=== PATIENT | female | born 1945 | race Caucasian/White ===

== ENCOUNTER 2017-03-19 07:26 | Day surgery (SDC) | payer MEDICARE ==
[~2017-03-19] VITALS: Ht 160 cm; Wt 58.4 kg
[~2017-03-19 07:26] MED LIST: AMLO5 PO; ASPI81CH PO; ATEN50 PO; CALCNI; CEPH500 PO; CYCL10 PO; GABA100 PO; HYDACE5 PO; LORA1 PO; Mobic15 MG PO; OMEP20ER PO; PROACE100 PO; PROM25 PO; Pravachol40 MG; Prednisone20 MG PO; RXPROACE PO; VALS80 PO; VENL25 PO
[2017-12-16] MEDS ORDERED: Venlafaxine HCl75 MG PO (07:49)
[2017-12-16] MEDS ORDERED: AMLO10 PO (07:49)
[2017-12-16] MEDS ORDERED: Pravastatin Sod40 MG PO (07:49)
[2017-12-16] MEDS ORDERED: Norco 5-325 Ta1 EACH PO (08:18)
[2017-12-16] MEDS ORDERED: Zofran Odt4 MG SL (08:18)
== END 2017-03-19 09:36 | disposition home or self-care (01) ==
LOC: ORSCSDS 07:26
PROVIDERS: Internal Medicine Gastroenterology
PROC: 0DBN8ZX Excision of Sigmoid Colon, Via Natural or Artificial Opening Endoscopic, Diagnostic (ICD-10-PCS; principal; 2017-03-19 08:45)
DX: Z12.11 Encounter for screening for malignant neoplasm of colon (principal); D12.5 Benign neoplasm of sigmoid colon; K64.8 Other hemorrhoids; K64.4 Residual hemorrhoidal skin tags; E78.00 Pure hypercholesterolemia, unspecified; Z85.038 Personal history of other malignant neoplasm of large intestine; Z86.010 Personal history of colon polyps; F17.210 Nicotine dependence, cigarettes, uncomplicated; K21.9 Gastro-esophageal reflux disease without esophagitis; Z79.82 Long term (current) use of aspirin; Z79.899 Other long term (current) drug therapy
CPT/HCPCS: 88305; J7120

== ENCOUNTER → 2020-03-31 | Outpatient (CLI) | payer MEDICARE ==
[~2020-03-31] MED LIST changes: +AMLO10 PO; +Norco 5-325 Ta1 EACH PO; +Pravastatin Sod40 MG PO; +Venlafaxine HCl75 MG PO; +Zofran Odt4 MG SL
== END | disposition home or self-care (01) ==
LOC: LAB SHORT 07:00 → LAB 07:00 → LAB SHORT 04-01 07:00
DX: K21.9 Gastro-esophageal reflux disease without esophagitis (principal)
CPT/HCPCS: 87338

== ENCOUNTER 2020-04-08 06:43 | Day surgery (SDC) | payer MEDICARE ==
[~2020-04-08] VITALS: Ht 154.9 cm; Wt 60.5 kg
--- NOTE | 2020-04-08 07:18 | NUR ---
04/08/20 0718 COLBY CELESTIN ONE ATTEMPT BY KALEE IN RH MISSED ONE ATTEMPT IN RH BY KALEE VALVE ONE SUCCESFUL BY RN IN RFA PT TOW
== END 2020-04-08 08:40 | disposition home or self-care (01) ==
LOC: ORSCSDS 06:43
PROVIDERS: Internal Medicine Gastroenterology
PROC: 0DB58ZX Excision of Esophagus, Via Natural or Artificial Opening Endoscopic, Diagnostic (ICD-10-PCS; 2020-04-08)
PROC: 0DB68ZX Excision of Stomach, Via Natural or Artificial Opening Endoscopic, Diagnostic (ICD-10-PCS; 2020-04-08)
PROC: 0D758ZZ Dilation of Esophagus, Via Natural or Artificial Opening Endoscopic (ICD-10-PCS; principal; 2020-04-08 07:45)
DX: R13.10 Dysphagia, unspecified (principal); K44.9 Diaphragmatic hernia without obstruction or gangrene; K21.9 Gastro-esophageal reflux disease without esophagitis; K64.4 Residual hemorrhoidal skin tags; E78.00 Pure hypercholesterolemia, unspecified; Z79.899 Other long term (current) drug therapy; F17.210 Nicotine dependence, cigarettes, uncomplicated; Z79.82 Long term (current) use of aspirin
CPT/HCPCS: 88305; 88342; J0330; J0461; J2405; J2704; J7120

== ENCOUNTER 2021-01-18 11:14 | Day surgery (SDC) | payer MEDICARE ==
[~2021-01-18] VITALS: Ht 154.9 cm; Wt 59.5 kg
[2021-01-18] MEDS ORDERED: VITAMIN D33000 UNIT PO (11:30)
[2021-01-18] MEDS ORDERED: Hair, Skin & N1 EACH PO (11:31)
== END 2021-01-18 13:15 | disposition home or self-care (01) ==
LOC: ORSCSDS 11:14
PROVIDERS: Internal Medicine Gastroenterology
PROC: 0DBP8ZX Excision of Rectum, Via Natural or Artificial Opening Endoscopic, Diagnostic (ICD-10-PCS; principal; 2021-01-18 12:30)
DX: R19.7 Diarrhea, unspecified (principal); Z85.038 Personal history of other malignant neoplasm of large intestine; Z86.010 Personal history of colon polyps; R63.5 Abnormal weight gain; K64.8 Other hemorrhoids; K64.4 Residual hemorrhoidal skin tags
CPT/HCPCS: 88305; J2704; J7120

== ENCOUNTER 2022-04-09 07:25 | Emergency (ER) | payer MEDICARE ==
[~2022-04-09] VITALS: Ht 154.9 cm; Wt 59.0 kg
[~2022-04-09 07:25] MED LIST changes: +Hair, Skin & N1 EACH PO; +VITAMIN D33000 UNIT PO
[2022-04-09] MEDS ORDERED: Zofran4 MG PO (09:02)
[2022-04-09] MEDS ORDERED: Colace250 MG PO (09:02)
[2022-04-09] MEDS ORDERED: LIDO700A20 TOP (09:02)
== END 2022-04-09 09:17 | disposition home or self-care (01) ==
LOC: ER 07:25
DX: S22.39XA Fracture of one rib, unspecified side, initial encounter for closed fracture (principal); W11.XXXA Fall on and from ladder, initial encounter; Z88.2 Allergy status to sulfonamides; Z88.8 Allergy status to other drugs, medicaments and biological substances; Z88.5 Allergy status to narcotic agent; Z79.899 Other long term (current) drug therapy; Z79.82 Long term (current) use of aspirin; I10 Essential (primary) hypertension; E78.5 Hyperlipidemia, unspecified; F17.290 Nicotine dependence, other tobacco product, uncomplicated
CPT/HCPCS: 71046; 93005; 93010; 96372; 99284-25; J1885

== ENCOUNTER 2022-05-14 10:39 | Day surgery (SDC) | payer MEDICARE ==
[~2022-05-14] VITALS: Ht 157.5 cm; Wt 58.1 kg
[~2022-05-14 10:39] MED LIST changes: +Colace250 MG PO; +LIDO700A20 TOP; +Zofran4 MG PO
== END 2022-05-14 13:10 | disposition home or self-care (01) ==
LOC: ORSCSDS 10:39
PROVIDERS: Orthopaedic Surgery
PROC: 01N50ZZ Release Median Nerve, Open Approach (ICD-10-PCS; principal; 2022-05-14 12:15)
DX: G56.02 Carpal tunnel syndrome, left upper limb (principal); I10 Essential (primary) hypertension; F17.210 Nicotine dependence, cigarettes, uncomplicated; Z79.82 Long term (current) use of aspirin; Z79.899 Other long term (current) drug therapy
CPT/HCPCS: J0690; J2001

== ENCOUNTER 2023-12-11 09:13 | Day surgery (SDC) | payer MEDICARE ==
[~2023-12-11] VITALS: Ht 160 cm; Wt 58.8 kg
[~2023-12-11 09:13] MED LIST changes: +Dexamethasone Sod Phos 10 MG/ML 1ML VIAL ONE; +FentaNYL Citrate 50 MCG/ML 2 ML Injection ONE; +Ondansetron HCl 2 MG / ML 2ML Vial ONE; +SuccINYLCHOLINE Chloride 100 MG/5 ML 5MLSYR ONE; +propofoL 20 ML IV ONE
[2023-12-11] MEDS ORDERED: Lactated Ringer's 1,000 ML IV ONE ×2 (09:30→10:56)
[2023-12-11] MEDS ORDERED: Lidocaine 2%-Epineph 1:200000 20 ML SDV ONE (09:41)
[2023-12-11] MEDS ORDERED: ePHEDrine Sulfate 50 MG/ML 1ML Injection ONE (10:14)
[2023-12-11] MEDS ORDERED: EPINEPhrine HCl 1 MG/ML 1ML Amp ONE (10:17)
[2023-12-11] MEDS ORDERED: FentaNYL Citrate 50 MCG/ML 2 ML Injection ONE ×2 (10:43→12:15)
--- NOTE | 2023-12-11 12:32 | NUR ---
12/11/23 1232 Vivienne Martínez TRIAL OFF 4L O2, PT TO 91% ON RA, ONCE GAVE FENTANYL PLACE BACK ON 4L O2 BY FACE TENT.
[2023-12-11] MEDS ORDERED: HYDROcodone 5-APAP 325 TAB ONE (13:27)
[2023-12-11 13:51] VITALS: BP 134/58
== END 2023-12-11 14:20 | disposition home or self-care (01) ==
LOC: ORSCSDS 09:13
PROVIDERS: Otolaryngology
PROC: 0GBH0ZZ Excision of Right Thyroid Gland Lobe, Open Approach (ICD-10-PCS; principal; 2023-12-11 11:00)
PROC: 0GBG0ZZ Excision of Left Thyroid Gland Lobe, Open Approach (ICD-10-PCS; principal; 2023-12-11 11:00)
DX: E04.2 Nontoxic multinodular goiter (principal); I10 Essential (primary) hypertension; F17.210 Nicotine dependence, cigarettes, uncomplicated
CPT/HCPCS: 88307; A9270; J0171; J0330; J1100; J2405; J2704; J3010; J7120

== ENCOUNTER 2024-09-09 06:39 | Day surgery (SDC) | payer MEDICARE ==
[~2024-09-09] VITALS: Ht 152.4 cm; Wt 60.8 kg
[~2024-09-09 06:39] MED LIST changes: -Dexamethasone Sod Phos 10 MG/ML 1ML VIAL ONE; -FentaNYL Citrate 50 MCG/ML 2 ML Injection ONE; +LEVSOD112 PO; -Ondansetron HCl 2 MG / ML 2ML Vial ONE; -SuccINYLCHOLINE Chloride 100 MG/5 ML 5MLSYR ONE; -propofoL 20 ML IV ONE
[2024-09-09 07:06] VITALS: BP 170/65
--- NOTE | 2024-09-09 07:38 | NUR ---
09/09/24 0738 Halley Pino 0731- CONFIRMED AND REVIEWED H&P, MEDCICATIONS, ALLERGIES, MEDICAL HISTORY, RESPIRATORY HISTORY, VITAL SIGNS, 3-LEAD EKG, CONSENTS, AND PHYSICIAN ORDERS. PATIENT CONFIRMS NPO STATUS AND AGREES WITH SCHEDULED PROCEDURE. MONITOR INTACT WITH CONTINUOUS PULSE OXIMETRY, CAPNOGRAPHY, 3-LEAD EKG, INTERMITTENT BP. SUPPLEMENTAL O2 TO BE TITRATED THROUGHOUT PROCEDURE TO MAINTAIN O2 SATURATION ABOVE 90%. PATIENT DETERMINED TO BE ASA APPROPRIATE FOR MAC. PROVIDING MAC.
[2024-09-09 08:07] VITALS: BP 146/71
--- NOTE | 2024-09-09 08:33 | NUR ---
Discharge instructions reviewed with patient. Patient verbalizes understanding. Copy given to patient to take home. Patient States Post-Procedure ride home has been arranged WITH BILL. Discharged via wheelchair to private car for ride home.
== END 2024-09-09 23:00 | disposition home or self-care (01) ==
LOC: ORSCMMR 06:39 → ORD 07:30 → ORSCMMR 23:00
PROVIDERS: Internal Medicine Gastroenterology
PROC: 0DJD8ZZ Inspection of Lower Intestinal Tract, Via Natural or Artificial Opening Endoscopic (ICD-10-PCS; principal; 2024-09-09 07:30)
DX: K62.5 Hemorrhage of anus and rectum (principal); R19.4 Change in bowel habit; Z85.038 Personal history of other malignant neoplasm of large intestine; K64.4 Residual hemorrhoidal skin tags; I10 Essential (primary) hypertension; Z90.49 Acquired absence of other specified parts of digestive tract; Z80.0 Family history of malignant neoplasm of digestive organs; F32.A Depression, unspecified; E03.9 Hypothyroidism, unspecified; E78.00 Pure hypercholesterolemia, unspecified; Z79.899 Other long term (current) drug therapy
CPT/HCPCS: J2704; J7120